=== PATIENT | male | born 1950 | race Caucasian/White ===

== ENCOUNTER → 2017-06-19 | Outpatient (CLI) | payer BC ==
[2017-06-19 14:02] LABS: ADD MAN DIFF? NO
[2017-06-19 14:06] LABS: BASO # 0.1 x10^3/uL (0.0-0.2); BASO % 1 % (0-3); EOS # 0.2 x10^3/uL (0.0-0.7); EOS % 3 % (0-3); HEMATOCRIT 42.4 % (39.0-53.0); HEMOGLOBIN 14.6 g/dL (13.0-17.5); LYMPH # 1.7 x10^3/uL (1.0-4.8); LYMPH % 31 % (24-48); MEAN CORPUSCULAR HEMOGLOBIN 32 pg (25-35); MEAN CORPUSCULAR HGB CONC 35 g/dL (31-37); MEAN CORPUSCULAR VOLUME 93 fL (79-100); MONO # 0.5 x10^3/uL (0.0-1.1); MONO % 10 % (0-9); NEUT # 2.9 x10^3uL (1.8-7.7); NEUT % 55 % (31-73); PLATELET COUNT 212 x10^3/uL (140-400); RED BLOOD COUNT 4.58 x10^6/uL (4.30-5.70); RED CELL DISTRIBUTION WIDTH 13.1 % (11.5-14.5); WHITE BLOOD COUNT 5.3 x10^3/uL (4.0-11.0)
[2017-06-19 14:29] LABS: ALBUMIN 3.9 g/dL (3.4-5.0); ALK PHOS 102 U/L (46-116); ALT (SGPT) 46 U/L (16-63); ANION GAP 10 (6-14); AST (SGOT) 28 U/L (15-37); BLOOD UREA NITROGEN 16 mg/dL (8-26); BUN/CREATININE RATIO 15 (6-20); CALCIUM 8.9 mg/dL (8.5-10.1); CARBON DIOXIDE 29 mmol/L (21-32); CHLORIDE 101 mmol/L (98-107); CREATININE 1.1 mg/dL (0.7-1.3); GFR 67.4; GLUCOSE 86 mg/dL (70-99); POTASSIUM 3.3 mmol/L (3.5-5.1); SODIUM 140 mmol/L (136-145); TOTAL PROTEIN 7.8 g/dL (6.4-8.2)
[2017-06-20 05:20] LABS: MRSA BY PCR Negative (Negative)
== END | disposition home or self-care (01) ==
LOC: SURGPAT 12:19
DX: Z01.818 Encounter for other preprocedural examination (principal)
CPT/HCPCS: 36415; 80053; 85025; 87641; 93005

== ENCOUNTER 2017-06-25 07:37 | Day surgery (SDC) | payer BC ==
[~2017-06-25 07:37] MED LIST: LIDOCAINE 1% PF 2 ML VIAL. ID; MORPHINE SULFATE 4 MG/ML DISP.SYRIN. IV; ONDANSETRON PF 4 MG/2 ML VIAL. IV; PROCHLORPERAZINE 10 MG/2 ML VIAL. IV; fentaNYL PF VIAL 100 MCG/2 ML VIAL IV
[2017-06-25] MEDS: IV RINGERS,LACTATED 1000ML 1,000 ML IV ×2 (08:10→09:22)
[2017-06-25] MEDS ORDERED: PROPOFOL 20 ML IV (10:18)
[2017-06-25] MEDS ORDERED: ONDANSETRON PF 4 MG/2 ML VIAL. (10:19)
[2017-06-25] MEDS ORDERED: LIDOCAINE 1% PF 5 ML VIAL. (10:19)
[2017-06-25] MEDS ORDERED: DEXAMETHASONE SOD PHOS 20 MG/5 ML VIAL. (10:19)
[2017-06-25] MEDS ORDERED: PHENYLEPHRINE 10 MG/ML VIAL. (10:19)
[2017-06-25] MEDS ORDERED: ROCURONIUM 50 MG/5 ML VIAL. (10:19)
[2017-06-25] MEDS ORDERED: fentaNYL PF VIAL 100 MCG/2 ML VIAL (10:21)
[2017-06-25] MEDS ORDERED: REMIFENTANIL 2 MG VIAL. IV (10:22)
[2017-06-25] MEDS ORDERED: PROPOFOL 50 ML IV ×2 (10:22→12:05)
[2017-06-25] MEDS ORDERED: GLYCOPYRROLATE 1 MG/5 ML VIAL. (11:11)
[2017-06-25] MEDS: GELATIN SPONGE SIZE 100. (11:34)
[2017-06-25] MEDS: BACITRACIN 50,000 UNIT in IV NORMAL SALINE 1000ML BAG 1,000 ML IRR (11:34)
[2017-06-25] MEDS: BUPIVAC MPF-EPI 0.5%-1:200000 30 ML VIAL. INJ (11:34)
[2017-06-25] MEDS: THROMBIN TOPICAL 20,000 UNIT SPRAY.SYRN KIT TP (11:34)
[2017-06-25] MEDS: KETOROLAC 60 MG/2 ML INJ FOR OR. (11:34)
[2017-06-25] MEDS ORDERED: NEOSTIGMINE 10 MG/10 ML VIAL. (11:43)
[2017-06-25] MEDS ORDERED: ESMOLOL 100 MG/10 ML VIAL. IV (12:16)
[2017-06-25] MEDS: fentaNYL PF VIAL 100 MCG/2 ML VIAL IV (14:30)
[2017-06-25] MEDS: HYDROcodone/APAP 7.5/325MG 1 TAB TABLET PO (14:40)
== END 2017-06-25 15:40 | disposition home or self-care (01) ==
LOC: SURG 07:37
DX: M51.16 Intervertebral disc disorders with radiculopathy, lumbar region (principal); M48.062 Spinal stenosis, lumbar region with neurogenic claudication; I10 Essential (primary) hypertension; J44.9 Chronic obstructive pulmonary disease, unspecified; Z79.82 Long term (current) use of aspirin; M19.90 Unspecified osteoarthritis, unspecified site; Z95.1 Presence of aortocoronary bypass graft; Z98.890 Other specified postprocedural states; Z79.899 Other long term (current) drug therapy; Z72.89 Other problems related to lifestyle
CPT/HCPCS: 63042; 76000; 88304; 88311; 97161-GP; J1100; J1885; J2405; J2704; J2710; J3010; J3490; J7030

== ENCOUNTER → 2020-09-18 | Outpatient (CLI) | payer MEDICARE ==
[2017-06-25 14:48] VITALS: BP 117/64
[~2020-09-18] MED LIST changes: +ASPI-630 PO; +DICL75TA PO; +DOCU-109 PO; +HYDR-2765 PO; +INUL2TAB4 PO; +LACT1CAP39 PO; -LIDOCAINE 1% PF 2 ML VIAL. ID; +LOSA1TAB19 PO; +MAGN250T10 PO; +METH-38 PO; -MORPHINE SULFATE 4 MG/ML DISP.SYRIN. IV; -ONDANSETRON PF 4 MG/2 ML VIAL. IV; +OXYC1TAB15 PO; +PANT20TA2 PO; +POLY17PO29 PO; +POTASSIUM PO; -PROCHLORPERAZINE 10 MG/2 ML VIAL. IV; +PSYL0.5215 PO; -fentaNYL PF VIAL 100 MCG/2 ML VIAL IV
--- NOTE | 2020-09-18 13:42 | EKG ---
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
[2020-09-18 14:17] LABS: BASO # 0.1 x10^3/uL (0.0-0.2); BASO % 1 % (0-3); EOS # 0.3 x10^3/uL (0.0-0.7); EOS % 5 % (0-3); HEMATOCRIT 39.5 % (39.0-53.0); HEMOGLOBIN 13.8 g/dL (13.0-17.5); LYMPH # 1.6 x10^3/uL (1.0-4.8); LYMPH % 33 % (24-48); MEAN CORPUSCULAR HEMOGLOBIN 32 pg (25-35); MEAN CORPUSCULAR HGB CONC 35 g/dL (31-37); MEAN CORPUSCULAR VOLUME 92 fL (79-100); MONO # 0.6 x10^3/uL (0.0-1.1); MONO % 11 % (0-9); NEUT # 2.5 x10^3/uL (1.8-7.7); NEUT % 50 % (31-73); PLATELET COUNT 185 x10^3/uL (140-400); RED BLOOD COUNT 4.31 x10^6/uL (4.30-5.70); RED CELL DISTRIBUTION WIDTH 12.7 % (11.5-14.5)
[2020-09-18 14:38] LABS: ALBUMIN 3.9 g/dL (3.4-5.0); ALBUMIN/GLOBULIN RATIO 1.4 (1.0-1.7); CALCIUM 8.6 mg/dL (8.5-10.1); GFR 74.5; POTASSIUM 3.9 mmol/L (3.5-5.1); TOTAL BILIRUBIN 0.8 mg/dL (0.2-1.0); TOTAL PROTEIN 6.6 g/dL (6.4-8.2)
== END ==
LOC: SURGPAT 12:47
PROVIDERS: ATTEND Neurological Surgery
DX: Z01.818 Encounter for other preprocedural examination (principal); M48.062 Spinal stenosis, lumbar region with neurogenic claudication; M51.16 Intervertebral disc disorders with radiculopathy, lumbar region
CPT/HCPCS: 36415; 80053; 85025; 87641; 93005

== ENCOUNTER 2020-09-24 09:16 | Observation (INO) | payer MEDICARE ==
[2020-09-18 13:24] VITALS: BP 154/85
[~2020-09-24] VITALS: Ht 180.3 cm; Wt 79.4 kg
[2020-09-24] VITALS (7 sets, daily range): BP systolic 116–162; BP diastolic 69–95
--- NOTE | 2020-09-24 09:00 | PREOP HP ---
DATE OF SERVICE: 09/24/2020 HISTORY OF PRESENT ILLNESS: The patient is a pleasant 69-year-old who is having difficulty with low back pain. He has had relatively extensive lumbar surgery in the past, both in 2011 and 2017. His current problem is pain in his buttocks and hips. He says occasionally with standing, he developed left lateral thigh pain. He says he is having difficulty emptying his bladder and feels constipated. The problem started about 3 months ago. Most of his pain occurs when he is bearing down, for example trying to have a bowel movement or standing from a seated position. He says morning is worst, but as the day progresses, he improved to a degree. He is taking [place]. He does not take it every day. He has had chiropractic treatment without benefit. He had massage, which made the problem worse. The right side is worse than the left side. CURRENT MEDICATIONS: [place], diclofenac, losartan, aspirin, pantoprazole. PAST MEDICAL HISTORY: Arthritis, COPD, heart disease, hypertension and tonsillitis. PAST SURGICAL HISTORY: Bypass in 2011, lumbar microdiskectomy L2-L3 bilateral and L4-L5, L5-S1 left microdiskectomy in 2011, lumbar microdecompression L3-L4 and L4-L5 in 05/2017. FAMILY HISTORY: Cancer and heart disease. 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 Drinks alcohol 1-2 times per day. ALLERGIES: No known drug allergies. REVIEW OF SYSTEMS: A 12-point review of systems was performed and is noncontributory except that mentioned above. PHYSICAL EXAMINATION: GENERAL: Alert, pleasant, in no acute distress. HEENT: Head normocephalic, atraumatic. SKIN: Warm and dry, well-healed lumbar incision. MUSCULOSKELETAL: Lumbar paraspinal muscle bulk is normal, restricted range of motion of the lumbar spine, [id number] tenderness of the lower lumbar spine with palpation. EXTREMITIES: No clubbing, cyanosis or edema. NEUROLOGIC: Alert and oriented x 3. Normal recent and remote memory. Strength is 5/5 in the lower extremities bilaterally. Sensory was intact to light touch in the lower extremities. Reflexes were present and symmetric in the lower extremities. Negative straight leg raising. Normal gait. IMAGING: I reviewed his MRI scan. On that study, there is a new finding of a large central disk herniation at L1-L2, which is associated with severe central canal stenosis at that level of the conus. The conus is displaced posteriorly. At L3-L4 on the right, there is severe central canal stenosis and right lateral recess stenosis. ASSESSMENT AND PLAN: The patient is having bladder difficulties along with right leg pain. He does have a large central disk herniation at L1-L2, which is compressing the conus region. Additionally, on the right side at L3-L4, there is lateral stenosis, which is associated with severe spinal canal stenosis at that level. I feel he should undergo lumbar microsurgery to deal with these problems. I discussed disk herniations anterior to the spinal cord. This is in the region of the conus. He should undergo decompression of both of these levels. I spoke with him about the surgery including the technique and expected postoperative course. He understands and would like to go ahead. MAGGIE BROWNING: Adriel TID: [id number] DANIAL
[~2020-09-24 09:16] MED LIST changes: +BUPIVACAINE-EPI 0.5%-1:200000 MPF 30 ML VIAL. ONE; +GELATIN SPONGE SIZE 100. ONE; +HYDROmorphone 2 MG/ML VIAL IVP PRN; +KETOROLAC 60 MG/2 ML VIAL. ONE; +MORPHINE SULFATE 2 MG/ML INJ. IVP PRN; -OXYC1TAB15 PO; +PROCHLORPERAZINE 10 MG/2 ML VIAL. IVP PRN; +THROMBIN TOPICAL 20,000 UNIT SPRAY.SYRN KIT TP ONE; +fentaNYL PF VIAL 100 MCG/2 ML VIAL IVP PRN
[2020-09-24] MEDS: IV RINGERS,LACTATED 1000ML 1,000 ML IV SCH ×2 (09:43→15:37)
[2020-09-24] MEDS ORDERED: DEXAMETHASONE SOD PHOS 4 MG/ML VIAL ONE ×2 (09:51→10:12)
[2020-09-24] MEDS ORDERED: LIDOCAINE 2% PF 5 ML VIAL. ONE (09:51)
[2020-09-24] MEDS ORDERED: PROPOFOL 10 MG/ML (20ML) VIAL. IV ONE (09:51)
[2020-09-24] MEDS ORDERED: ROCURONIUM 50 MG/5 ML VIAL. ONE (09:51)
[2020-09-24] MEDS ORDERED: ONDANSETRON PF 4 MG/2 ML VIAL. ONE (09:51)
[2020-09-24] MEDS ORDERED: PROPOFOL 50 ML IV ONE ×2 (09:53→12:15)
[2020-09-24] MEDS ORDERED: MIDAZOLAM HCL/PF 2 MG/2 ML VIAL. ONE (10:12)
[2020-09-24] MEDS ORDERED: fentaNYL PF VIAL 100 MCG/2 ML VIAL ONE ×2 (10:12→15:41)
[2020-09-24] MEDS ORDERED: REMIFENTANIL 2 MG VIAL. IV ONE (10:13)
[2020-09-24] MEDS ORDERED: SUCCINYLCHOLINE 200 MG/10 ML VIAL. ONE (10:13)
[2020-09-24] MEDS ORDERED: KETAMINE HCL IN NACL, ISO-OSM 50 MG/5 ML SYRINGE ONE (11:08)
[2020-09-24] MEDS ORDERED: GELATIN SPONGE SIZE 100. ONE (12:58)
[2020-09-24] MEDS ORDERED: DESFLURANE > 120 MINUTES IH ONE (14:27)
[2020-09-24] MEDS ORDERED: ACETAMINOPHEN 325 MG TABLET. PO PRN (15:00)
[2020-09-24] MEDS ORDERED: METHOCARBAMOL 750 MG TABLET PO PRN (15:00)
[2020-09-24] MEDS ORDERED: MAG HYDROX/ALUMINUM HYD/SIMETH 30 ML ORAL.SUSP PO PRN (15:00)
[2020-09-24] MEDS ORDERED: CALCIUM CARBONATE 500 MG TAB.CHEW PO PRN (15:00)
[2020-09-24] MEDS ORDERED: diphenhydrAMINE HCL 25 MG CAPSULE PO PRN (15:00)
[2020-09-24] MEDS ORDERED: NALOXONE 0.4 MG/ML VIAL. IV PRN (15:00)
[2020-09-24] MEDS ORDERED: oxyCODONE/APAP 5/325 1 TAB TABLET PO PRN (15:00)
[2020-09-24] MEDS ORDERED: NON FORMULARY ITEM (Diclofenac Sodium 1 TAB) PO PRN (15:00)
[2020-09-24] MEDS ORDERED: 0.9 % SODIUM CHLORIDE 10 ML DISP.SYRIN. IV PRN (15:00)
[2020-09-24] MEDS ORDERED: MAGNESIUM HYDROXIDE 2,400 MG/30 ML ORAL.SUSP. PO PRN (15:00)
[2020-09-24] MEDS: POTASSIUM CL 20MEQ D5-0.45NACL 1,000 ML IV SCH (15:00)
[2020-09-24] MEDS: fentaNYL PF VIAL 100 MCG/2 ML VIAL IVP PRN ×2 (15:47→16:55)
--- NOTE | 2020-09-24 17:00 | NUR ---
received kade from recovery. He is alert and oriented. His dressing to his back is mod amt serosanguineous drainage. reinforced with abd and medipore tape. refused ice at this time. He is rating his pain a 5. at bedside. hx completed.
--- NOTE | 2020-09-24 17:10 | NUR ---
tolerating supper well. he denies numbness or tingling bilateral lower extremities. He has good strength and motion bilateral lower extremities
--- NOTE | 2020-09-24 18:08 | OP ---
DATE OF SURGERY: 09/24/2020 PREOPERATIVE DIAGNOSES: 1. Lumbar spinal stenosis, L1-L2 with a large central disc herniation. 2. Right-sided disc herniation with degenerative arthritis and lumbar spinal stenosis at L3-L4. OPERATIONS PERFORMED: 1. Bilateral hemilaminotomies with decompression of dura and nerve root at L1-L2. 2. Hemilaminotomy with microdiscectomy at right L3-L4. The operation was done with EMG monitoring, SSEP monitoring, fluoroscopy, microscopic dissection. SPECIMEN: Disc and decompression. SURGEON: Julio Esparza M.D. SEXTON HELPER: HAMIDA Kincaid assisted with the surgery. She assisted with exposure, the decompression as well as the closure. OPERATIVE INDICATIONS: The patient is a pleasant 69-year-old man who has undergone multiple lumbar surgeries. He was found to have the above-mentioned findings and failed conservative measures. I explained to him the risks of surgery including injury of the nerves for bowel and bladder control. I spoke with him about the technique of the operation, the possibility he may need further surgery. He understood and wished for me to go ahead. DESCRIPTION OF PROCEDURE: Following general endotracheal anesthesia, the patient was positioned prone on the Terence table. Lumbar region prepped and draped in standard fashion. RENAE hose and AV impulse boots were applied for DVT prophylaxis. The microscope was draped, fluoroscopy was draped and brought in the field. Monitoring was established. Ancef 2 grams was given less than one hour prior to initiation of surgery. Using fluoroscopic guidance, incision was made over the L1-L2 interspace. I dissected down through the skin and subcutaneous tissue, reflected the paraspinal muscles to the left and brought in a [place] microdisk retractor, I burred down a very generous hemilaminotomy, trimmed away very thickened ligamentum flavum and performed a large partial foraminotomy and then gently retracted the root and dura medially, incised the annulus and ligament and performed discectomy. Some of the disc was soft and was more easily removed, some was harder and calcified, but as I worked, I was able to get an excellent decompression. I went back and across the midline using a [employer] dental. I then went to the right side and in a similar fashion, created a large hemilaminotomy, which extended virtually to the midline as I did on the other side and performed a very generous discectomy. Again, at the beginning of the operation, the dura was not easy to retract and I only retracted a tiny amount until after I incised the annulus and removed a significant portions of the disc, which were then freed up. Hemostasis was excellent. I moved down to L3-L4 on the right, and performed a very generous hemilaminotomy again through the microscope using microscopic technique. Again, I peeled away the ligamentum flavum and again I was able to perform a microdiscectomy. I did perform partial foraminotomy at this level as well. I removed a large subligamentous disc fragment, which markedly decompressed the entire region and then as I worked, I felt that I had an excellent decompression. I irrigated copiously at all levels. I removed the retractors and I assured myself of excellent hemostasis and then I closed the wound in layers with absorbable suture. The skin was closed with skin justine. I felt the surgery went very well. RUFINO/CHARLIE DR: Ericka TID: [id number] DANIAL
[2020-09-24] MEDS: oxyCODONE/APAP 5/325 1 TAB TABLET PO PRN ×2 (19:04→21:49)
[2020-09-24] MEDS ORDERED: POTASSIUM 99 MG PO SCH (21:00)
[2020-09-24] MEDS ORDERED: PSYLLIUM HUSK (SUGAR FREE) 1 PKT PACKET PO SCH (21:00)
[2020-09-24] MEDS: LACTOBACILLUS RHAMNOSUS GG 1 CAPSULE. PO SCH (21:48)
[2020-09-24] MEDS: DICLOFENAC SODIUM 25 MG TABLET.DR PO SCH (21:48)
[2020-09-24] MEDS: DOCUSATE SODIUM 100 MG CAPSULE. PO SCH (21:49)
[2020-09-24] MEDS: PANTOPRAZOLE 40 MG TABLET.DR. PO SCH (21:53)
[2020-09-24] MEDS: LOSARTAN POTASSIUM 50 MG TABLET. PO SCH (21:53)
[2020-09-24] MEDS: hydroCHLOROthiazide 12.5 MG CAPSULE PO SCH (21:53)
[2020-09-25] MEDS: oxyCODONE/APAP 5/325 1 TAB TABLET PO PRN ×3 (01:56→09:14)
[2020-09-25 03:00] VITALS: BP 157/87
[2020-09-25] MEDS: POTASSIUM CL 20MEQ D5-0.45NACL 1,000 ML IV SCH (04:20)
[2020-09-25 07:00] VITALS: BP 162/95
[2020-09-25] MEDS ORDERED: PANTOPRAZOLE 40 MG TABLET.DR. PO SCH (07:30)
[2020-09-25] MEDS ORDERED: POLYETHYLENE GLYCOL 3350 17 GM PACKET. PO SCH (09:00)
[2020-09-25] MEDS ORDERED: MAGNESIUM OXIDE 400 MG TABLET PO SCH (09:00)
[2020-09-25] MEDS ORDERED: ASPIRIN CHEWABLE 81 MG TABLET. PO SCH (09:00)
[2020-09-25] MEDS ORDERED: INULIN PO SCH (09:00)
[2020-09-25] MEDS ORDERED: hydroCHLOROthiazide 12.5 MG CAPSULE PO SCH (09:00)
[2020-09-25] MEDS ORDERED: LOSARTAN POTASSIUM 50 MG TABLET. PO SCH (09:00)
[2020-09-25] MEDS: DOCUSATE SODIUM 100 MG CAPSULE. PO SCH (09:00)
[2020-09-25] MEDS ORDERED: OXYC1TAB15 PO (09:04)
--- NOTE | 2020-09-25 09:05 | DISCH ---
DISCHARGE INSTRUCTIONS Condition on Discharge Condition on Discharge: Stable Activity After Discharge Activity Instructions for Disc: Activity as tolerated, Avoid exertion Other activity instructions: no driving for a week Bathing Instructions: Shower-keep dressing dry Lifting Instructions after Dis: No heavy lifting, No pulling or pushing, Do not lift >10 pounds Diet after Discharge Additional Diet Restrictions: resume home diet Wound Incision Care Wound/Incision Care: Ice to area for comfort Other wound/incision instructi: may remove dressing in 48 hours if dry then may shower, no soaking Contacting the after DC Call your doctor for: Concerns you may have Follow-Up Follow up with: Dr. Branch's nurse in 2 weeks [phone] MIESHA BRANCH MD Sep 25, 2020 09:05
[2020-09-25] MEDS: DICLOFENAC SODIUM 25 MG TABLET.DR PO SCH (09:11)
[2020-09-25 09:12] VITALS: BP 162/95
[2020-09-25] MEDS: hydroCHLOROthiazide 12.5 MG CAPSULE PO SCH (09:12)
[2020-09-25] MEDS: LOSARTAN POTASSIUM 50 MG TABLET. PO SCH (09:12)
[2020-09-25] MEDS: PANTOPRAZOLE 40 MG TABLET.DR. PO SCH (09:12)
[2020-09-25] MEDS: LACTOBACILLUS RHAMNOSUS GG 1 CAPSULE. PO SCH (09:12)
--- NOTE | 2020-09-25 10:10 | NUR ---
Discharge Note: Patient was discharged home with self care. Patient wanting to go home as soon as possible this morning. Patients IV was discontinued without any complications per [employer] TRANSACTION MANAGER. Patients spouse at the bedside at the time of discharge education. Patient was given discharge summary/instructions, follow-ups, prescriptions and educational material. Patient did not have any further questions or concerns. Patient was taken down to the main entrance via wheelchair with all personal belongings accompanied by this RN, where his was waiting for him to take him home.
--- NOTE | 2020-09-25 13:27 | DS ---
DATE OF DISCHARGE: 09/25/2020 DISCHARGE DIAGNOSES: 1. Lumbar spinal stenosis L1-L2 with large central disk herniation. 2. Right-sided disk herniation with degenerative arthritis and lumbar spinal stenosis, L3-L4. OPERATION PERFORMED: Bilateral hemilaminotomies with decompression of dura and nerve root at L1-L2 and hemilaminotomy with microdiskectomy, right L3-L4. HISTORY OF PRESENT ILLNESS: The patient is a pleasant 69-year-old man who has undergone multiple lumbar surgeries. He was found to have the above-mentioned findings and failed to improve with conservative measures. I explained to him the risk of surgery including bowel and bladder control. I spoke with him about the technique of the operation and the possibility that he may need further surgery. He understood and wished to proceed. HOSPITAL COURSE: He was admitted to the floor postoperatively where he did well. He has been up ambulating in the room and in the halls. Physical therapy was initiated and instruction was given to him regarding his activities. His pain is well controlled and he is in good condition to discharge home. He does report significant improvement in his symptoms and is not having any significant pain at this time. DISCHARGE MEDICATIONS: He will resume his medications per the MRAD. DISCHARGE INSTRUCTIONS: He was instructed regarding incision care, activity restrictions and expectations for the next several weeks. He will follow up in our office in 2 weeks. He understands to call with any questions or concerns. VINNIE DR: Adriel TID: [id number] DANIAL
--- NOTE | 2020-09-27 17:23 | PATHOLOGY ---
[facility] Accession Number: [id number] . 01 Material submitted: . vertebral column - LUMBAR DISC AND DECOMPRESSION. Modifiers: LUMBAR DISC . 01 Clinical history: . LUMBAR STENOSIS, HERNIATED DISC WITH RADICULOPATHY LUMBAR MICRODECOMPRESSION, MICRODISCECTOMY L1-2 BILATERAL, L3-4 RIGHT LUMBAR HERNIATED DISC NENITA... . 02 Diagnosis: Segments of fibrocartilaginous and adipose tissue and bone, lumbar disc and decompression: - Degenerative changes of fibrocartilaginous tissue. (JPM:ar 09/27/2020) QMS 09/27/2020 0941 Local . 02 Comment: There is no evidence of an acute inflammatory process or malignancy. . 02 Electronically signed: . William De La Paz MD, Pathologist NPI- [id number] . 01 Gross description: . Received in formalin labeled "Brendan Jain and lumbar disc and decompression". Additional information from the requisition states "L1-2 bilateral, L3-L4 right". The specimen consists of multiple irregular segments of rubbery and gritty fibrocartilaginous tissue and bone. The specimen is representatively submitted in cassette A1 after decalcification.(BLJ; 09/25/2020) BLJ/BLJ 09/27/2020 0940 Local . 02 Pathologist provided ICD-10: M51.36 . 02 CPT . 512332, [id number] Specimen Comment: A courtesy copy of this report has been sent to [phone], [phone] Specimen Comment: [id number] Specimen Comment: Report sent to / DR BEGUM Performed at: [address], [place] [id number] MD Nicko Oliva MD Phone: [phone] Performed at: 02 [facility] [address] [place], [place] [id number] MD William De La Paz MD Phone: [phone]
== END 2020-09-25 10:10 | disposition home or self-care (01) ==
LOC: SURG 09:16 → 5 NORTH 14:59
PROVIDERS: ADMIT Neurological Surgery; ATTEND Neurological Surgery
DX: M51.26 Other intervertebral disc displacement, lumbar region (principal); M48.061 Spinal stenosis, lumbar region without neurogenic claudication; M19.90 Unspecified osteoarthritis, unspecified site; I10 Essential (primary) hypertension; J44.9 Chronic obstructive pulmonary disease, unspecified; K59.00 Constipation, unspecified; J03.90 Acute tonsillitis, unspecified; Z79.899 Other long term (current) drug therapy; Z98.890 Other specified postprocedural states
CPT/HCPCS: 63030; 63047; 63048; 88304; 88311; A4213; A4364; A4930; A6254; A6258; G0378; G0379; J0330; J0690; J1100; J1885; J2250; J2405; J2704; J3010; 76000; A4222